=== PATIENT | male | born 1950 | race African-American/Black ===

== ENCOUNTER 2017-03-22 17:38 | Emergency (ER) | payer BC | END 2017-03-22 20:00 | disposition home or self-care (01) | LOC: ER 17:38 | PROC: 0HQGXZZ Repair Left Hand Skin, External Approach (ICD-10-PCS; principal; 2017-03-22) | DX: S61.211A Laceration without foreign body of left index finger without damage to nail, initial encounter (principal); W45.8XXA Other foreign body or object entering through skin, initial encounter | CPT/HCPCS: 73140-LT; 90471; 90714; 99283; A9270-GY ==